=== PATIENT | female | born 1960 | race Caucasian/White ===

== ENCOUNTER → 2020-07-10 15:45 | Outpatient (CLI) | payer OTHER, SELFPAY ==
--- NOTE | ~2020-07-10 | US_ITS ---
US abdomen complete DATE: 07/10/2020 16:12 INDICATION: Abdominal pain TECHNIQUE: Real-time imaging and Doppler analysis of the abdomen COMPARISON: None FINDINGS: The pancreas is partially obscured by bowel gas. Hepatic steatosis. No hepatic space-occupying mass lesion is evident. Normal hepatopedal portal venou s flow direction. Approximately 4 mm probable gallbladder polyp. No gallbladder wall thickening. No pericholecystic flu id collection. Negative sonographic Correa's sign. The common bile duct measures 3.6 mm, normal. The right kidney measures 10.2 cm approximate length, the left kidney approximately 10.5 cm. No renal mass lesion or hydronephrosis is evident. Renal parenchymal echogenicity appears relatively prominen t; recommend clinical correlation for possible medical disease of the kidneys. Normal size of the spleen. Normal caliber of the abdominal aorta. Inferior vena cava is not well visualized. IMPRESSION: Limited visualization of the pancreas Hepatic steatosis Probable small gallbladder polyp Relative increased echogenicity of renal parenchyma bilaterally, suggesting possible chronic bilatera l renal disease; recommend clinical correlation Reviewed, dictated and finalized at [facility]. Reviewed, dictated and finalized at [facility]. OR ARCHITECT IMPRESSION: Limited visualization of the pancreas Hepatic steatosis Probable small gallbladder polyp Relative increased echogenicity of renal parenchyma bilaterally, suggesting pos sible chronic bilateral renal disease; recommend clinical correlation
== END ==
PROVIDERS: PCP Physician Assistant; Visit Provider Internal Medicine Rheumatology
DX: R10.9 Unspecified abdominal pain (principal); K76.0 Fatty (change of) liver, not elsewhere classified
CPT/HCPCS: 76700

== ENCOUNTER 2020-11-28 11:17 | Outpatient (CLI) | payer OTHER, SELFPAY ==
--- NOTE | ~2020-11-28 | US_ITS ---
EXAMINATION: US right upper quadrant EXAM DATE: 11/28/2020 11:55 INDICATION: Abdominal pain. TECHNIQUE: Multiple grayscale and Doppler images of the abdomen right upper quadrant were obtained (b y a technologist who performed the scan) and subsequently reviewed. Comparison is made to prior exami nation from 07/10/2020. FINDINGS: The pancreatic head and body are normal in appearance. The pancreatic tail is not visualized. The l iver has normal echogenicity and contour. There are no focal liver lesions identified. There is no evidence of intrahepatic biliary duct dilation. Portal venous flow was seen in the hepatopedal, nor mal direction and has normal Doppler waveform. No right-sided hydronephrosis. Common bile duct measures 3 mm, which is normal. The gallbladder wall is normal in thickness, with ex pected amount of distention. No sonographic evidence of pericholecystic fluid. There are several fo sheri echogenic regions along the gallbladder wall measuring up to 4 mm, along the dependent portion bu t reportedly nonmobile. No posterior shadowing. Most likely small polyps which are not clinically sig nificant. Additionally, these are unchanged compared to June ultrasound. Technologist performing e xam reports patient did not demonstrate sonographic Correa's sign. Please note that this sign is les s reliable in patients who have received pain medication. IMPRESSION: 1. Small gallbladder polyps requiring no further evaluation. 2. Otherwise unremarkable exam. Reviewed, dictated and finalized at [facility].
== END 2020-11-28 11:18 ==
LOC: MICIMG 11:17
PROVIDERS: Visit Provider Nurse Practitioner
DX: R93.2 Abnormal findings on diagnostic imaging of liver and biliary tract (principal); K82.4 Cholesterolosis of gallbladder
CPT/HCPCS: 76705

== ENCOUNTER → 2020-11-28 11:18 | Outpatient (CLI) | payer OTHER, SELFPAY ==
--- NOTE | ~2020-11-28 | MM_ITS ---
EXAMINATION: MM screening [facility] BI w craig HISTORY: Screening mammogram TECHNIQUE: Craniocaudal and mediolateral oblique 3-D tomosynthesis images were obtained and synthetic 2-D images were generated. CAD analysis was submitted and interpreted. COMPARISON: 12/14/2018, 10/27/2012 BREAST PARENCHYMAL COMPOSITION: The breasts are almost entirely fatty. FINDINGS: There is no evidence of suspicious mass, calcification, or architectural distortion to sugg est malignancy in either breast. There has been no suspicious interval change. IMPRESSION: 1. No mammographic evidence of malignancy. 2. Recommend routine screening mammography in one year. BI-RADS Category 1: Negative Reviewed, dictated and finalized at [facility].
== END ==
PROVIDERS: Visit Provider Physician Assistant
DX: Z12.31 Encounter for screening mammogram for malignant neoplasm of breast (principal)
CPT/HCPCS: 77063; 77067

== ENCOUNTER 2021-06-09 14:07 | Emergency (ER) | payer OTHER, SELFPAY ==
--- NOTE | ~2021-06-09 | XR_ITS ---
EXAMINATION: XR knee LT min 4V DATE: 06/09/2021 14:41 INDICATION: Left knee pain TECHNIQUE: Weight bearing anteroposterior and Skinner, sunrise, and flexed lateral views of the lef t knee were obtained. COMPARISON: None. FINDINGS: Alignment is normal. No fracture. Mild joint space narrowing in the lateral compartment of the left knee and at the lateral side of the patellofemoral compartment. There is associated small to moderate size marginal osteophytes in the lateral and patellofemoral compartments. Tiny marginal osteophytes along the medial side of the intercondylar eminence. No left knee joint effusion/layering lipohemarth rosis. Soft tissues are unremarkable. IMPRESSION: 1. Mild lateral and patellofemoral compartment osteoarthritis. Reviewed, dictated and finalized at location . RAM EVALUATOR
[2021-06-09 14:20] VITALS: BP 148/87; PULSE 88; RESP 18; TEMP 36.3; O2SAT 100
--- NOTE | 2021-06-09 14:27 | ED.LOWEXIN ---
HPI - Extremity Injury (Lower) General Chief Complaint: Extremity Problem,Nontraumatic Stated Complaint: Lt knee pain Time Seen by Provider: 06/09/21 14:27 Source: patient and RN notes reviewed Mode of arrival: ambulatory Limitations: no limitations History of Present Illness HPI Narrative: 60-year-old female presents to the [facility] with complaints of left knee pain. Has a history of arthritis in her knees, states she has received injections in the past. Denies any trauma. No swelling, tenderness along the lateral aspect Has an appointment July 17 with orthopedics for knee injections Related Data Home Medications Medication Instructions Recorded Confirmed amlodipine 5 mg PO HS 06/09/21 06/09/21 amlodipine 10 mg PO DAILY 06/09/21 06/09/21 doxepin 100 mg PO DAILY 06/09/21 06/09/21 ezetimibe 10 mg PO DAILY 06/09/21 06/09/21 lorazepam 1 mg PO PRN PRN 06/09/21 06/09/21 tofacitinib [Xeljanz XR] 11 mg PO DAILY 06/09/21 06/09/21 Allergies Allergy/AdvReac Type Severity Reaction Status Date / Time hydrocodone Allergy Severe Anaphylaxis Verified 06/09/21 14:57 morphine Allergy Severe Anaphylaxis Verified 06/09/21 14:57 Penicillins Allergy Mild Hives Verified 06/09/21 14:54 Sulfa (Sulfonamide Allergy Mild Hives Verified 06/09/21 14:54 Antibiotics) CEFUROXIME AXETIL (Generic Allergy Mild Hives Uncoded 06/09/21 14:54 Allergy) ERYTHROMYCIN (Generic Allergy Mild Hives Uncoded 06/09/21 14:54 Allergy) MACROLIDES Allergy Mild Hives Uncoded 06/09/21 14:54 SULFAMERAZINE (Generic Allergy Mild Hives Uncoded 06/09/21 14:54 Allergy) NKFA Allergy Unknown Unknown Uncoded 04/24/20 14:18 Review of Systems Review of Systems: All systems reviewed & are unremarkable except as noted in HPI and below Constitutional: Constitutional: Reports no additional constitutional complaints, Denies chills and Denies fever(s) Eyes: Eyes: Reports no additional eye complaints ENT: Reports system reviewed and no additional complaints, except as documented Cardiovascular: Cardiovascular: Reports no additional cardiovascular complaints Respiratory: Respiratory: Reports no additional respiratory complaints Gastrointestinal: Gastrointestinal: Reports no additional gastrointestinal complaints Musculoskeletal: Musculoskeletal: Reports as per HPI and Reports arthralgias (Left knee) Integumentary/Breasts: Skin/Breast: Reports system reviewed and no additional complaints, except as docu Neurologic: Reports system reviewed and no additional complaints, except as documented Psychiatric: Psychiatric: Reports no additional psychiatric complaints Allergic/Immunologic: Allergic/Immunologic: Reports no additional allergic/immunologic complaints PMFSH Past Medical History Medical History (Updated 06/09/21 @ 14:59 by Reina Cuadra) Flat foot [pes planus] (acquired), left foot GERD (gastroesophageal reflux disease) Hypertension Mucous cyst of digit of right hand Pes planus of right foot Plantar fasciitis of right foot Rheumatoid arthritis Rheumatoid arthritis involving both hands with positive rheumatoid factor Urinary frequency Weight gain Family History Family History Other Diabetes mellitus Family history of arthritis Hypertension Social History Social History Smoking status: Never smoker Alcohol intake: current Comments At the time of my signature, I reviewed and agree with the nursing past medical, surgical, social, and family history. There is no relevant family history pertinent to the patient complaint. Exam Const: General: healthy appearing, no acute distress and alert Nutritional Appearance: well nourished and obese morbidly obese Orientation/consciousness: patient oriented x3 HENMT: Head: normal to inspection Eyes: Pupils: Equal, round and reactive pupils present Neck: Neck: normal visual inspection, no ly
[2021-06-09 14:54] VITALS: BP 148/87; PULSE 88; RESP 18; TEMP 36.3; O2SAT 100
== END 2021-06-09 15:10 | disposition home or self-care (01) ==
PROVIDERS: Emergency Provider Nurse Practitioner; PCP Physician Assistant
DX: M17.12 Unilateral primary osteoarthritis, left knee (principal); K21.9 Gastro-esophageal reflux disease without esophagitis; I10 Essential (primary) hypertension; M05.9 Rheumatoid arthritis with rheumatoid factor, unspecified
CPT/HCPCS: 73564; 99213; G0463

== ENCOUNTER 2021-12-01 16:26 | Outpatient (CLI) | payer OTHER, SELFPAY ==
--- NOTE | ~2021-12-01 | XR_ITS ---
EXAMINATION: XR hip LT min 2V DATE: 12/01/2021 17:56 INDICATION: Left hip pain. TECHNIQUE: 2 views of left hip were obtained. COMPARISON: Hip radiographs 01/07/2017 FINDINGS: Bone alignment is normal. No fracture. There is mild left hip osteoarthritis. IMPRESSION: 1. Mild left hip osteoarthritis. Reviewed, dictated and finalized at location [facility].
--- NOTE | ~2021-12-01 | MR_ITS ---
EXAMINATION: MR hip LT wo con DATE: 12/01/2021 17:35 INDICATION: Left hip pain. TECHNIQUE: Magnetic resonance imaging (MRI) of the left hip was performed without intravenous contras t. COMPARISON: Left hip radiographs 12/01/2021 FINDINGS: Bones/cartilage: Bone alignment is normal. No fracture. There is moderate lumbar spondylosis. The hip joints demonstra te tiny osteophytes. Small [id number] images of left hip demonstrate partial thickness cartilage l oss. Labrum: There is a tear of the left acetabular labrum. Fluid: There is no hip joint effusion. There is severe bilateral trochanteric bursitis. Soft tissues: There is mild tendinopathy of the hamstring origins. The iliopsoas tendons are normal. There are giuliana re partial tears of the right gluteus minimus and gluteus medius tendons. There is a complete tear of left gluteus minimus tendon. There is a severe partial tear of left gluteus medius tendon. IMPRESSION: 1. Mild osteoarthritis of the hips. 2. Complete tear of left gluteus minimus tendon and severe partial tear of left gluteus medius tendon . Severe partial tears of the right gluteus minimus and gluteus medius tendons. 3. Severe bilateral trochanteric bursitis. Reviewed, dictated and finalized at location A. IMPRESSION: 1. Mild osteoarthritis of the hips. 2. Complete tear of left gluteus minimus tendon and severe partial tear of left gluteus medius tendon. Severe partial tears of the right gluteus minimus and g luteus medius tendons. 3. Severe bilateral trochanteric bursitis.
--- NOTE | ~2021-12-01 | XR_ITS ---
EXAMINATION: XR lumbar spine 2-3V DATE: 12/01/2021 17:57 INDICATION: Left hip pain TECHNIQUE: Anteroposterior and lateral views of the lumbar spine, and cone-down lateral view of the l umbosacral junction were obtained. COMPARISON: None. FINDINGS: There are 2 mm of anterolisthesis of L5 on S1. There is severe loss of intervertebral disc space height at L2-3 and moderate loss of disc space height at L1-2 and L5-S1. The lumbar vertebral b eliza heights are maintained. There is mild anterior wedging of the visualized lower thoracic vertebral bodies. Severe facet osteoarthritis is noted at L4-5 and L5-S1. Degenerative osteophytes project fro m the anterior endplates of multiple vertebral bodies. IMPRESSION: 1. Moderate lumbar spondylosis without acute findings. Reviewed, dictated and finalized at location A.
== END 2021-12-01 16:27 ==
PROVIDERS: PCP Physician Assistant; Visit Provider Physician Assistant Medical
DX: M25.552 Pain in left hip (principal); M47.816 Spondylosis without myelopathy or radiculopathy, lumbar region; M16.0 Bilateral primary osteoarthritis of hip; S76.012A Strain of muscle, fascia and tendon of left hip, initial encounter; M71.552 Other bursitis, not elsewhere classified, left hip
CPT/HCPCS: 72100; 73502; 73721